=== PATIENT | female | born 1965 | race African-American/Black ===

== ENCOUNTER 2019-03-12 12:01 | Emergency (ER) | payer OTHER ==
[~2019-03-12] VITALS: Ht 162.6 cm; Wt 107.0 kg
[2019-03-12 12:06] VITALS: BP 145/84
--- NOTE | 2019-03-12 12:11 | NUR ---
Patient ambulated to bed 12. RN evaluating patient at bedside.
--- NOTE | 2019-03-12 12:26 | NUR ---
PT BIB SELF C/O LT EYE PAIN, SWELLING, DISHCARGE, AND REDNESS X1 DAY. + COUGH X1 WEEK, - N/V, - FEVER. PT SEEN AT [facility] IN NOVEMBER FOR SCRATCHING EYE, AND TX WITH GENTAMICIN WITH RELIEF, PT REPORTS SAME SYMPTOMS RETURNED LAST NIGHT. VSS. ER TO SEE PT. MEDHX:DENIES RX:DENIES
[2019-03-12] MEDS ORDERED: TETRACAINE HCL/PF 0.5% OPTH 4 ML BTL OP ONE (13:40)
[2019-03-12] MEDS ORDERED: FLUORESCEIN OPTH STRIP 1 MG ONE (13:45)
--- NOTE | 2019-03-12 13:48 | NUR ---
pontocaine, florocine, slit lamp set up at bedide
[2019-03-12 14:38] VITALS: BP 140/84
--- NOTE | 2019-03-12 14:38 | NUR ---
Patient discharged with v/s stable. Written and verbal after care instructions given and explained. Patient alert, oriented and verbalized understanding of instructions. Ambulatory with steady gait. All questions addressed prior to discharge. ID band removed. Patient advised to follow up with PMD. Rx of GENTAK given. Patient educated on indication of medication including possible reaction and side effects. Opportunity to ask questions provided and answered.
== END 2019-03-12 14:38 | disposition home or self-care (01) ==
LOC: MED 12:01
DX: I10 Essential (primary) hypertension (principal); H57.12 Ocular pain, left eye; H53.142 Visual discomfort, left eye; J45.909 Unspecified asthma, uncomplicated; F17.210 Nicotine dependence, cigarettes, uncomplicated; Z91.09 Other allergy status, other than to drugs and biological substances; Z71.6 Tobacco abuse counseling
CPT/HCPCS: 99283

== ENCOUNTER 2022-07-28 10:49 | Day surgery (SDC) | payer OTHER ==
[~2022-07-28] VITALS: Ht 162.6 cm; Wt 121.6 kg
[2022-07-28] MEDS ORDERED: diphenhydrAMINE 50 MG/ML VIAL ONE (11:25)
[2022-07-28] MEDS ORDERED: LIDOCAINE 2% 100 MG/5 ML UJET TP ONE (11:25)
[2022-07-28] MEDS ORDERED: MIDAZOLAM 5 MG/5 ML VIAL ONE (11:25)
[2022-07-28] MEDS ORDERED: fentaNYL citrate 0.05 MG/ML VIAL ONE ×2 (11:25→11:42)
[2022-07-28] MEDS ORDERED: MIDAZOLAM 2 MG/2 ML VIAL IVP ONE (12:05)
[2022-07-28] MEDS ORDERED: fentaNYL citrate 0.05 MG/ML VIAL IVP ONE (12:05)
[2022-07-28] MEDS ORDERED: diphenhydrAMINE 50 MG/ML VIAL IVP ONE (12:15)
== END 2022-07-28 12:38 | disposition home or self-care (01) ==
LOC: MDS 10:49 → MMU 10:50 → MDS 12:38
PROVIDERS: ATTEND Internal Medicine Gastroenterology
DX: Z12.11 Encounter for screening for malignant neoplasm of colon (principal); K62.1 Rectal polyp; K63.5 Polyp of colon; J44.9 Chronic obstructive pulmonary disease, unspecified; I10 Essential (primary) hypertension; E66.9 Obesity, unspecified; M19.90 Unspecified osteoarthritis, unspecified site; Z87.891 Personal history of nicotine dependence; Z20.822 Contact with and (suspected) exposure to COVID-19; Z68.42 Body mass index [BMI] 45.0-49.9, adult
CPT/HCPCS: 45380; 45385; 87426; J1200; J2250; J3010